=== PATIENT | male | born 1970 | race Caucasian/White ===

== ENCOUNTER 2016-10-14 13:06 | Emergency (ER) | payer BC ==
[~2016-10-14] VITALS: Ht 180.3 cm; Wt 110.0 kg
[2016-10-14 13:08] VITALS: BP 141/69; PULSE 73; RESP 14; TEMP 98.1; O2SAT 96
[2016-10-14] MEDS ORDERED: OFLO0.3D5 LEFT EAR (14:35)
[2016-10-14] MEDS ORDERED: CIPR0.3S LEFT EAR (14:35)
--- NOTE | 2016-10-14 14:41 | PD ---
HPI Chief Complaint: ENT Complaint Time Seen by Provider: 14:00 Travel History International Travel<30 days: No Contact w/Intl Traveler<30days: No Traveled to known affect area: No History of Present Illness HPI 45-year-old male presents to the emergency room for evaluation of left ear pain and drainage for the past 2 days. Patient went to an urgent care center earlier today and was told to come to the emergency room because the extent of disease. States pain is severe, worse with insertion of anything. He reports associated clear drainage and wakes up with drainage on the pillow. Admits to swimming a lot in his pool recently. [facility] Past Medical History Medical History: Denies Significant Hx Immunizations Current: Yes Past Surgical History Surgical History: No Previous Surgery Social History Alcohol Use: No Tobacco Use: No Allergies-Medications (Allergen,Severity, Reaction): Coded Allergies: Penicillin (Verified Allergy, Intermediate, Hives, 10/14/16) Reported Meds & Prescriptions Reported Meds & Active Scripts Active Ofloxacin Opth Drops 0.3 % Drops 7 Drop LEFT EAR DAILY Ciprodex Otic Drops (Ciprofloxacin-Dexamethasone Otic Drops) 0.3-0.1% Susp 4 Drop LEFT EAR Q12HR Review of Systems Except as stated in HPI: all other systems reviewed are Neg Physical Exam Narrative GENERAL: Well-nourished, well-developed male in no acute distress. Afebrile. Ambulatory. SKIN: Warm and dry. HEAD: Normocephalic. EYES: No scleral icterus. No injection or drainage. NECK: Supple, trachea midline. No JVD or lymphadenopathy. EARS: Bilateral pinnae within normal limits. Bilateral tympanic membranes without erythema, dullness or perforation. Left external auditory canal contains mild to moderate purulent drainage. The canal is swollen with a very small opening. Extremely tender to palpation. Right ear canal is unremarkable. Data Data Last Documented VS Vital Signs Date Time Temp Pulse Resp B/P Pulse Ox O2 Delivery O2 Flow Rate FiO2 10/14/16 13:08 98.1 73 14 141/69 96 Room Air MDM Medical Decision Making Medical Screen Exam Complete: Yes Emergency Medical Condition: Yes Medical Record Reviewed: Yes Differential Diagnosis Otitis externa versus otitis media versus eustachian tube dysfunction versus abscess Narrative Course 45-year-old male presents to the emergency room for evaluation of left ear pain and drainage for the past 2 days. Patient reports increase in swimming in his pool recently. Physical exam reveals left external auditory canal contains mild to moderate purulent drainage. The canal is swollen with a very small opening. Extremely tender to palpation. History and physical are consistent with otitis externa. Ear wick was placed. Patient discharged with prescription for Ciprodex. He was also given a prescription for ofloxacin in the event that Ciprodex is too expensive. Told not to administer/take both. Told to follow up with a primary care physician or return for worsening symptoms. He understands and agrees to this plan. Diagnosis Primary Impression: Left otitis externa Qualified Code: H60.332 - Acute swimmer's ear of left side Referrals: Primary Care Physician Patient Instructions: General Instructions, Otitis Externa (ED) Additional Instructions: Rest and drink plenty of fluids. The wick should be replaced every one to 3 days if your swelling persists. You can purchase them at the store. You do not need one if the swelling goes away. Apply drops to the affected area as directed. If Ciprodex is too expensive, so the other prescription. You do not need both. Avoid getting ear wet for the next 6 days. Take ibuprofen with food as directed, as needed for pain. Follow-up with a primary care physician. Return to the emergency room for worsening symptoms. Med/Other Pt SpecificInfo: Prescription(s) given Scripts Ofloxacin Opth Drops 0.3 % Drops7 Drop LEFT EAR DAILY #1 BOTTLE Prov:Adair Del Rio MD 10/14/16 Ciprofloxacin-Dexamethasone Otic Drops (Ciprodex Otic Drops)0.3-0.1% Susp4 Drop LEFT EAR Q12HR #1 BOTTLE Ref 0 Prov:Adair Del Rio MD 10/14/16 Disposition: 01 DISCHARGE HOME Condition: Stable Suha Sewell Oct 14, 2016 14:41
== END 2016-10-14 14:56 | disposition home or self-care (01) ==
LOC: NEPB 13:06
DX: H60.502 Unspecified acute noninfective otitis externa, left ear (principal)
CPT/HCPCS: 99282

== ENCOUNTER 2016-10-18 11:06 | Emergency (ER) | payer BC ==
[~2016-10-18] VITALS: Ht 180.3 cm; Wt 110.0 kg
[~2016-10-18 11:06] MED LIST: CIPR0.3S LEFT EAR; OFLO0.3D5 LEFT EAR
[2016-10-18] MEDS ORDERED: CIPR-9 PO (11:26)
[2016-10-18] MEDS ORDERED: CORT1SOL LEFT EAR (11:29)
[2016-10-18] MEDS ORDERED: IBUP800T23 PO (11:30)
--- NOTE | 2016-10-18 11:30 | PD ---
HPI Chief Complaint: ENT Complaint Time Seen by Provider: 11:24 Travel History International Travel<30 days: No Contact w/Intl Traveler<30days: No Traveled to known affect area: No History of Present Illness HPI 45-year-old male presents to the emergency department with continued left ear pain. He was seen here on March and was given prescription for ciprofloxacin eardrops and ofloxacin eardrops. He only filled the ofloxacin eardrops, because he could not afford the ciprofloxacin eardrops. He says he doesn't think the antibiotic eardrops are working and making his ear better. He has been using them as prescribed. He said that they did not awaken his ear when he was seen here last but he had to remove it quickly after being seen in the ER because it was causing too much pain. He reports feeling dizzy and nausea without vomiting. Reports feeling feverish but cannot report a MAXIMUM TEMPERATURE of the has not taken his temperature. He is afebrile in the ER. Denies any associated nasal congestion, throat pain, cough. Allergic to penicillin. Does not have primary care provider. No other modifying factors or associated signs and symptoms. PFSH Past Medical History Immunizations Current: Yes Social History Alcohol Use: No Tobacco Use: No Allergies-Medications (Allergen,Severity, Reaction): Coded Allergies: Penicillin (Verified Allergy, Intermediate, Hives, 10/18/16) Reported Meds & Prescriptions Reported Meds & Active Scripts Active Ibuprofen 800 Mg Tab 800 Mg PO Q6HR PRN Cortisporin HC Otic Drops (Hksgwpff-Dppyzjgkb-HT Otic Drops) 3.5-10,000-1 Mg- Units-% Soln 4 Drop LEFT EAR QID 7 Days Cipro (Ciprofloxacin HCl) 500 Mg Tab 500 Mg PO BID 10 Days Ofloxacin Opth Drops 0.3 % Drops 7 Drop LEFT EAR DAILY Ciprodex Otic Drops (Ciprofloxacin-Dexamethasone Otic Drops) 0.3-0.1% Susp 4 Drop LEFT EAR Q12HR Review of Systems Except as stated in HPI: all other systems reviewed are Neg Physical Exam Narrative GENERAL: Well-nourished, well-developed male patient, in no acute distress; afebrile, nontoxic-appearing SKIN: Warm and dry. No rash. HEAD: Atraumatic. Normocephalic. EYES: Pupils equal and round at 3 mm with brisk reaction. No scleral icterus. No injection or drainage. PERRLA. ENT: Mucosa pink and moist. No erythema or exudates. No uvular edema. No uvular , palatal, or tonsillar deviation. Airway patent. EARS: Bilateral pinnae and external canals appear within normal limits. Left ear canal is edematous and without erythema or drainage noted; the ear canal is slightly opened but I cannot visualize the tympanic membrane; reproducible pain with pulling on the pinna Right tympanic membranes without erythema, dullness or perforation. NECK: Trachea midline. No lymphadenopathy. CARDIOVASCULAR: Regular rate. RESPIRATORY: No accessory muscle use. GASTROINTESTINAL: Rounded. MUSCULOSKELETAL: No obvious deformities. No clubbing. No cyanosis. No edema. NEUROLOGICAL: Awake and alert. Oriented 3. No obvious cranial nerve deficits. Motor grossly within normal limits. Normal speech. Moves all extremities. 5/5 strength to all extremities. PSYCHIATRIC: Appropriate mood and affect; insight and judgment normal. MDM Medical Decision Making Medical Screen Exam Complete: Yes Emergency Medical Condition: Yes Medical Record Reviewed: Yes Differential Diagnosis Left otitis externa, medical clearance, otitis media, eardrum perforation, cerumen impaction Narrative Course 45-year-old male physical exam consistent with left otitis media. He was seen on November 03 and was prescribed ciprofloxacin and ofloxacin eardrops, which she only has been using the ofloxacin secondary to not being able to afford the ciprofloxacin ear drops. Patient is afebrile and nontoxic-appearing. He says he has been feeling feverish at home but has not taken his temperature. He removed the ear wick that was placed on October 14 soon after his ER visit because he said it was too painful. The left ear canal is edematous but is slightly open. The patient reports that that is improvement because it was completely closed when he was here last. I am unable to visualize the tympanic membrane. The patient is requesting change in eardrops because he thinks that it they're not working. I prescribed the patient oral ciprofloxacin and a changed his ear drop to Cortisporin. I instructed the patient to take the oral antibiotics and to continue the ear drops as prescribed. Patient is medically cleared and stable for discharge. Discussed reasons to return to the emergency department. Instructed patient to follow up with primary care provider. Patient agrees with treatment plan. The patients vital signs are stable and the patient is stable for outpatient follow-up and treatment. Patient discharged home, stable and in no acute distress. 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
== END 2016-10-18 11:37 | disposition home or self-care (01) ==
LOC: NEPB 11:06
DX: H60.92 Unspecified otitis externa, left ear (principal)
CPT/HCPCS: 99283